=== PATIENT | female | born 1995 | race Hispanic/Latino ===

== ENCOUNTER → 2024-04-07 | Outpatient (CLI) | payer MEDICAID ==
[~2024-04-07] MED LIST: GADOTERATE MEGLUMINE 10 MMOL/20 ML VIAL IV ONE
== END | disposition home or self-care (01) ==
LOC: RAH 10:00
PROVIDERS: ATTEND Surgery Surgical Oncology
DX: K86.89 Other specified diseases of pancreas (principal); D73.4 Cyst of spleen
CPT/HCPCS: 74183; A9575